=== PATIENT | female | born 1995 | race African-American/Black ===

== ENCOUNTER 2018-04-06 09:45 | Emergency (ER) | payer MEDICAID ==
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
[2018-04-06 11:46] VITALS: BP 142/84
== END 2018-04-06 11:52 | disposition home or self-care (01) ==
LOC: ER 09:45
DX: M25.522 Pain in left elbow (principal); M79.632 Pain in left forearm; W22.01XA Walked into wall, initial encounter; R68.83 Chills (without fever)
CPT/HCPCS: 99283